=== PATIENT | male | born 1945 | race Caucasian/White ===

== ENCOUNTER → 2017-01-04 | Outpatient (CLI) | payer OTHER ==
[~2017-01-04] MED LIST: ACLI1AER3 INH; ALBUAER19 INH; ASPI81TA25 PO; B-COTAB18 PO; CALC0.009; CHOL200010 PO; FERR325T5 PO; FOLI1TAB7 PO; FORM12CA2 INH; HYDR-5688 PO; INSPMPNVLG; LISI-461 PO; LORA-741 PO; METF1000 PO; METH2.5T PO; METO25TA56 PO; MOME220A3 INH; MTR500 PO; OMEP20TA PO; PREG100C PO; RANO500T PO; RIVA9.5D TD; SERT-234 PO; SIMV40TA4 PO; SNG10 INH; TEST1INJ2; [UNRECOGNIZED DRUG - CODE]
[2017-01-05 06:57] LABS: ESTIMATED AVERAGE GLUCOSE 192 mg/dl; HA1C FLAG Normal (Normal)
--- NOTE | 2017-01-11 06:33 | CODING QUERY MEDICAL NECESSITY ---
SUPPORTING DIAGNOSIS NEEDED Daryn CATHY, A supporting diagnosis is required for the test/procedure performed on this patient in order for us to be reimbursed by the patient's insurance. Please provide a supporting diagnosis for the following test/procedure listed below next to the test name along with your signature. *If there is no additional diagnosis for this patient that would support the following test/procedure please document that below next to the test/procedure. Test(s)/Procedure(s) that require a supporting diagnosis: * ([id number]) VITAMIN D ASSAY DIAGNOSIS: DATE OF SERVICE: 01/04/17 Provider Signature: Date: Thank you Rodrick Goetz [facility] Information Management Once completed, please kindly fax back to [phone] For questions please call [phone]
== END | disposition home or self-care (01) ==
LOC: C.LAB1850 13:28
PROVIDERS: ATTEND Nurse Practitioner Adult Health
DX: E78.5 Hyperlipidemia, unspecified (principal); I10 Essential (primary) hypertension; E11.49 Type 2 diabetes mellitus with other diabetic neurological complication; E55.9 Vitamin D deficiency, unspecified